=== PATIENT | female | born 1980 ===

== ENCOUNTER 2016-09-05 18:20 | Emergency (ER) | payer MEDICAID, OTHER ==
[2016-09-05 18:31] VITALS: BP 121/71; RESP 20; TEMP 98; O2SAT 100
[2016-09-05] MEDS ORDERED: Sodium Chloride 0.9% 1,000 ML IV STA (18:51)
--- NOTE | 2016-09-05 18:53 | ED PDOC ---
HPI: General Adult Time Seen by Provider: 09/05/16 18:20 Chief Complaint (Nursing): Dizziness/Lightheaded Chief Complaint (Provider): DIZZINESS History Per: Patient (36 Y/O FEMALE HERE WITH COMPLAINT OF ROOM SPINNING THAT IS ONGOING X 2 DAYS. DENIES ANY SYNCOPE/VOMITING/ETC. DENIES ANY CHEST PAIN/ ETC.) Past Medical History Reviewed: Historical Data, Nursing Documentation, Vital Signs Vital Signs: Last Vital Signs Temp 98.0 F 09/05/16 18:28 Pulse 65 09/05/16 19:07 Resp 20 09/05/16 18:28 BP 121/71 09/05/16 18:28 Pulse Ox 100 09/05/16 19:10 - Medical History PMH: Asthma Denies: Chronic Kidney Disease - Surgical History Surgical History: Appendectomy - Family History Family History: States: Unknown Family Hx - Immunization History Hx Tetanus Toxoid Vaccination: No Hx Influenza Vaccination: No Hx Pneumococcal Vaccination: No - Home Medications Home Medications: Ambulatory Orders Medication Instructions Recorded Ondansetron [Zofran] 4 mg PO Q6H PRN #10 tab 07/15/15 Ranitidine HCl [Zantac 150] 150 mg PO BID #20 tab 07/15/15 traMADol [Ultram] 50 mg PO TID PRN #12 tab 07/15/15 Hydrocortisone 2.5% (Rectal) 30 applic [place] BID PRN #1 tube 01/20/16 [Anusol-HC] Ciprofloxacin HCl [Cipro] 500 mg PO BID #6 tablet 04/07/16 Ranitidine HCl [Zantac 75] 75 mg PO BID #10 tablet 04/07/16 Clindamycin [Cleocin] 300 mg PO BID #14 cap 04/19/16 Methylprednisolone [Medrol Dose 4 mg PO DAILY #21 mg 04/19/16 Pack (21 tabs)] Ondansetron ODT [Zofran ODT] 4 mg PO Q6 PRN #10 odt 04/19/16 - Allergies Allergies/Adverse Reactions: Allergies Allergy/AdvReac Type Severity Reaction Status Date / Time No Known Allergies Allergy Verified 09/05/16 18:28 Review of Systems ROS Statement: Except As Marked, All Systems Reviewed And Found Negative Physical Exam - Reviewed Nursing Documentation Reviewed: Yes Vital Signs Reviewed: Yes - Physical Exam Appears: Positive for: Well, Non-toxic, No Acute Distress Head Exam: Positive for: ATRAUMATIC, NORMAL INSPECTION, NORMOCEPHALIC Skin: Positive for: Normal Color, Warm, DRY Eye Exam: Positive for: EOMI, Normal appearance, PERRL ENT: Positive for: Normal ENT Inspection Neck: Positive for: Normal, Painless ROM Cardiovascular/Chest: Positive for: Regular Rate, Rhythm Respiratory: Positive for: CNT, Normal Breath Sounds Gastrointestinal/Abdominal: Positive for: Normal Exam, Bowel Sounds, Soft Back: Positive for: Normal Inspection Extremity: Positive for: Normal ROM Neurologic/Psych: Positive for: Alert, Oriented - Laboratory Results Result Diagrams: 09/05/16 19:05 09/05/16 19:05 Urine POC: Negative - ECG O2 Sat by Pulse Oximetry: 100 - Progress ED Course And Treament: EKG: NSR 65BPM NO ECTOPY NO ACUTE CHANGES DONE AT 19:04 antivert 25 mg reglan 10 mg iv x 1 dose ns [address]: pending Disposition - Clinical Impression Clinical Impression: Dizziness - Patient ED Disposition Is Patient to be Admitted: Transfer of Care - Disposition Disposition: Transfer of Care Disposition Time: 19:54 Condition: FAIR Patient Signed Over To: Venita Abraham Handoff Comments: head ct/re-evaluation
[2016-09-05 19:17] VITALS: PULSE 65
[2016-09-05 19:24] LABS: BASO # 0.1 K/uL (0.0-0.2); BASO % 0.7 % (0.0-2.0); EOS % 0.6 % (0.0-4.0); HEMATOCRIT 39.2 % (34.0-47.0); LYMPH # 2.5 K/uL (1.0-4.3); LYMPH % 35.2 % (20.0-40.0); MEAN CELL VOLUME 88.3 fl (81.0-99.0); MEAN CORPUSCULAR HEMOGLOBIN 29.2 pg (27.0-31.0); MEAN CORPUSCULAR HGB CONC 33.1 g/dL (33.0-37.0); MEAN PLATELET VOLUME 8.5 fl (7.2-11.7); MONO # 0.6 K/uL (0.0-0.8); NEUT % 55.5 % (50.0-75.0); RED CELL DISTRIBUTION WIDTH 12.8 % (11.5-14.5); WHITE BLOOD COUNT 7.2 K/uL (4.8-10.8)
[2016-09-05 19:42] LABS: BLOOD UREA NITROGEN 12 mg/dl (7-17); CARBON DIOXIDE 27 mmol/L (22-30); CHLORIDE 103 mmol/L (98-107); GFR AFRICAN-AMERICAN > 60; GLUCOSE,RANDOM 84 mg/dL (65-105); MAGNESIUM 1.8 MG/DL (1.6-2.3); POTASSIUM 3.7 MMOL/L (3.6-5.0); SODIUM 135 mmol/l (132-148)
--- NOTE | 2016-09-05 20:17 | ED PDOC ---
- Laboratory Results Result Diagrams: 09/05/16 19:05 09/05/16 19:05 Urine POC: Negative - ECG O2 Sat by Pulse Oximetry: 100 Medical Decision Making Medical Decision Making: Case endorsed to food writer from JOSE GUADALUPE Davila at 20:[address] and re-eval HPI: General Adult Time Seen by Provider: 09/05/16 18:20 Chief Complaint (Nursing): Dizziness/Lightheaded Chief Complaint (Provider): DIZZINESS History Per: Patient (36 Y/O FEMALE HERE WITH COMPLAINT OF ROOM SPINNING THAT IS ONGOING X 2 DAYS. DENIES ANY SYNCOPE/VOMITING/ETC. DENIES ANY CHEST PAIN/ ETC.) Head CT FINDINGS: BRAIN: Mild, diffuse cortical atrophy, which appears somewhat advanced for age. Recommend clinical correlation. No significant acute abnormality identified. No acute hemorrhage seen within the brain. No acute extra-axial fluid collections visualized. No evidence of significant mass effect within the brain. Normal roy-white matter differentiation. VENTRICLES: No evidence of significant hydrocephalus. BONES/JOINTS: No acute fractures or other acute bony abnormality noted. SOFT TISSUES: No acute abnormality of the visualized soft tissues is seen. SINUSES: Visualized paranasal sinuses appear clear. MASTOID AIR CELLS: Mastoid air cells appear clear. IMPRESSION: - No acute findings seen within the brain. - See above for remaining findings. CBC and COMP resulted WNL. EKG reviewed: NSR at 65 bpm, no axis deviation or acute ST changes Pt on re-eval reports doing well after receiving Meclaxzine, IVF and Reglan. Pt stable for discharge at this time. Given RX to coninue on Meclazine PRN, Follow up with PMD, return to ED with any concerns. Disposition - Clinical Impression Clinical Impression: Dizziness - POA Present On Arrival: None - Disposition Disposition: Routine/Home Disposition Time: 20:36 Condition: FAIR
--- NOTE | 2016-09-05 20:18 | CT ---
EXAM: CT Head Without Intravenous Contrast. CLINICAL HISTORY: 36 years old, female; Pain; Headache; Other: Antunez's on/ off x 1 year; Additional info: Dizziness TECHNIQUE: Axial computed tomography images of the head/brain without intravenous contrast. This CT exam was performed using one or more of the following dose reduction techniques: automated exposure control, adjustment of the mA and/or kV according to patient size, and/or use of iterative reconstruction technique. Coronal and sagittal reformatted images were created and reviewed. EXAM DATE/TIME: 09/05/2016 6:53 PM COMPARISON: Prior head CT of 11/23/2015 12:27:13 PM FINDINGS: BRAIN: Mild, diffuse cortical atrophy, which appears somewhat advanced for age. Recommend clinical correlation. No significant acute abnormality identified. No acute hemorrhage seen within the brain. No acute extra-axial fluid collections visualized. No evidence of significant mass effect within the brain. Normal roy-white matter differentiation. VENTRICLES: No evidence of significant hydrocephalus. BONES/JOINTS: No acute fractures or other acute bony abnormality noted. SOFT TISSUES: No acute abnormality of the visualized soft tissues is seen. SINUSES: Visualized paranasal sinuses appear clear. MASTOID AIR CELLS: Mastoid air cells appear clear. IMPRESSION: - No acute findings seen within the brain. - See above for remaining findings.
[2016-09-05] MEDS ORDERED: Oxycodone/Acetaminophen 5/325 mg Tab PO STA (20:58)
[2016-09-05] MEDS ORDERED: Oxycodone/Acetaminophen 5/325 mg Tab ONE (21:09)
--- NOTE | 2016-09-07 09:43 | CARD ---
APPROVED REPORT EKG Measurement Heart [id number] <Conclusion> Normal sinus rhythm with sinus arrhythmia Normal ECG
== END 2016-09-05 21:19 | disposition home or self-care (01) ==
LOC: H.ER 18:20
DX: R42 Dizziness and giddiness (principal)